=== PATIENT | female | born 1980 | race Caucasian/White ===

== ENCOUNTER 2019-07-02 04:51 | Emergency (ER) | payer BC ==
[~2019-07-02] VITALS: Ht 172.7 cm; Wt 56.2 kg
--- NOTE | 2019-07-02 05:12 | NUR ---
39Y F THAT COMES IN W/ C/O STOMACH PAIN AND NAUSEA, PT STS SHE RAN OUT OF HER REGLAN A FEW DAYS AGO AND HAS GASTROPORESIS, PT STS SHE CAME IN BECAUSE SHE HAS NO PAIN MANAGEMENT AND WANTS "A COUPLE PILLS TO GET TO [place]." PT CONNECTED TO MONITORING VSSNAYELI
--- NOTE | 2019-07-02 05:22 | NUR ---
Norman jang in [facility] - 07/02/19 at 0539 by VERENICE PA AT BEDSIDE
--- NOTE | 2019-07-02 05:22 | NUR ---
PA AT BEDSIDE TO ASSESS PT
[2019-07-02] MEDS ORDERED: ONDANSETRON ODT 4 MG PO ONE (05:30)
[2019-07-02] MEDS ORDERED: KETOROLAC 30 MG/1 ML IM ONE (05:30)
[2019-07-02] MEDS ORDERED: ACETAMINOPHEN 325 MG TABLET PO ONE (05:30)
[2019-07-02] MEDS ORDERED: ONDANSETRON ODT 4 MG ONE (05:31)
[2019-07-02] MEDS ORDERED: KETOROLAC 30 MG/1 ML ONE (05:31)
[2019-07-02] MEDS ORDERED: ACETAMINOPHEN 325 MG TABLET ONE (05:31)
--- NOTE | 2019-07-02 05:38 | NUR ---
Note suhail in EDM - 07/02/19 at 0539 by VERENICE PT MEDICATED PER MAR, PT REFUSED TYLENOL AND WAS ANGRY ABOUT THE DOSAGE OF HER ZOFRAN, PT TO XRAY AT THIS TIME. NAYELI
--- NOTE | 2019-07-02 05:39 | NUR ---
PT MEDICATED PER SEP, PT REFUSED TYLENOL AND WAS ANGRY ABOUT THE DOSAGE OF HER ZOFRAN, PT TO XRAY AT THIS TIME. NAYELI
--- NOTE | 2019-07-02 05:44 | NUR ---
PT BACK FROM XRAY
--- NOTE | 2019-07-02 05:51 | NUR ---
LAB AT BEDSIDE
[2019-07-02 06:02] VITALS: BP 142/92
--- NOTE | 2019-07-02 06:02 | NUR ---
PT REQUESTING PAIN MEDS TO BE UPDATED
[2019-07-02 06:06] LABS: BASOPHILS # (AUTO) 0.01 x10^3/uL (0-0.1); BASOPHILS % (AUTO) 0 % (0-1); EOSINOPHILS # (AUTO) 0.15 x10^3/uL (0-0.4); EOSINOPHILS % (AUTO) 3 % (1-7); LYMPHOCYTES # (AUTO) 1.01 x10^3/uL (1-3.4); LYMPHOCYTES % (AUTO) 16 % (22-44); MD NO; MEAN CORPUSCULAR HEMOGLOBIN 26.8 pg (27.0-34.8); MEAN CORPUSCULAR VOLUME 83.6 fL (80-100); MEAN PLATELET VOLUME 8.3 fL (7.4-10.4); MONOCYTES # (AUTO) 0.37 x10^3/uL (0.2-0.8); MONOCYTES % (AUTO) 6 % (2-9); NEUTROPHILS # (AUTO) 4.61 x10^3/uL (1.8-6.8); NEUTROPHILS % (AUTO) 75 % (42-75); PLATELET COUNT 261 x10^3/uL (130-400); RED BLOOD COUNT 3.97 x10^6/uL (3.82-5.3); RED CELL DISTRIBUTION WIDTH 17.4 % (9.6-15.2)
--- NOTE | 2019-07-02 06:07 | NUR ---
ADDITIONAL ORDER FROM JUNA SAUCEDO, PT MEDICATED PER MAR, PT NOW REQUESTING IV AND IV REGLAN, SOUP, AND MORE PAIN MEDICATION. PA TO BED UPDATED
[2019-07-02 06:16] LABS: ALANINE AMINOTRANSFERASE 25 U/L (12-78); ALBUMIN 3.5 g/dL (3.4-5.0); ANION GAP 6 mmol/L (5-15); CALCIUM 9.1 mg/dL (8.5-10.1); CHLORIDE 112 mmol/L (98-107); CREATININE 0.71 mg/dL (0.55-1.02)
[2019-07-02 06:20] LABS: ALKALINE PHOSPHATASE 62 U/L (45-117); BILIRUBIN,TOTAL 0.2 mg/dL (0.2-1.0); TOTAL PROTEIN 7.3 g/dL (6.4-8.2)
== END 2019-07-02 06:40 | disposition home or self-care (01) ==
LOC: ED 06:37
DX: R10.84 Generalized abdominal pain (principal); G89.29 Other chronic pain; Z90.49 Acquired absence of other specified parts of digestive tract
CPT/HCPCS: 36415; 74021; 80053; 83690; 84703; 85025; 96372; 99284; J1885; Q0162